=== PATIENT | female | born 1985 | race Caucasian/White ===

== ENCOUNTER 2022-01-25 07:18 | Day surgery (SDC) | payer OTHER ==
[~2022-01-25] VITALS: Ht 167.6 cm; Wt 66.2 kg
[2022-01-25] MEDS ORDERED: PROP10 PO (07:34)
[2022-01-25] MEDS ORDERED: LEVSOD88 (07:36)
[2022-01-25] MEDS ORDERED: AMPHETAMINE SUL10 MG PO (07:36)
--- NOTE | 2022-01-25 09:37 | NUR ---
01/25/22 0937 RENE PASCUAL PAIN IS NOW A -12/24
--- NOTE | 2022-01-25 09:53 | NUR ---
01/25/22 0953 Marlena Abbott A 100CC NACL FLUID DEFICIT FROM HYSTEROSCOPY. SUREON AND ANESTHESIA AWARE.
== END 2022-01-25 10:25 | disposition home or self-care (01) ==
LOC: ORSCSDS 07:18
PROVIDERS: Obstetrics & Gynecology
PROC: 0UB98ZX Excision of Uterus, Via Natural or Artificial Opening Endoscopic, Diagnostic (ICD-10-PCS; principal; 2022-01-25 08:30)
PROC: 0UDB8ZX Extraction of Endometrium, Via Natural or Artificial Opening Endoscopic, Diagnostic (ICD-10-PCS; principal; 2022-01-25 08:30)
DX: N92.0 Excessive and frequent menstruation with regular cycle (principal); D25.1 Intramural leiomyoma of uterus; N84.0 Polyp of corpus uteri; E03.9 Hypothyroidism, unspecified; Z79.899 Other long term (current) drug therapy
CPT/HCPCS: 88305; A9270; J1885; J2250; J2704; J3010; J7120